=== PATIENT | male | born 1955 | race African-American/Black ===

== ENCOUNTER 2020-01-03 16:55 | Emergency (ER) | payer SELFPAY ==
[~2020-01-03] VITALS: Ht 172.7 cm; Wt 68.0 kg
[~2020-01-03 16:55] MED LIST: BACTRIM DS TAB1 EAC1 ORAL; IBUPROFEN600 MG ORAL; KEFLEX500 MG ORAL
--- NOTE | 2020-01-03 17:10 | NUR ---
ED Nurse Note: ambulated to ed from home c/o right shoulder pain x 1 day. reports waking up with painful shoulder; denies fall or trauma. AO4. nad. vss. ambulates with steady gait.
[2020-01-03] MEDS ORDERED: Methocarbamol 750mg tab ORAL ONE (17:15)
[2020-01-03] MEDS ORDERED: Ketorolac 30mg Inj IM ONE (17:15)
--- NOTE | 2020-01-03 17:20 | NUR ---
ED Nurse Note: Medicated patient; tolerated well. radiology at bedside for imaging.
[2020-01-03 17:33] VITALS: BP 155/90
--- NOTE | 2020-01-03 17:58 | Emergency Room Report ---
History of Present Illness General Chief Complaint: Pain Source: Patient (Brett Emery) Present Illness HPI 64-year-old male who claims has no past medical history here complaining of waking up this morning with right-sided shoulder pain rating it 8 out of 10 at this time. Denies any fall or injury. Reports that he often lifts weights and lifts heavy objects. Denies any chest pain or chest pain radiation. Patient is worried whether the shoulder is out of socket. Has range of motion however with pain. Denies any tingling numbness. Complains of pain radiation to the posterior shoulder. Denies headache and dizziness, reports that has not taken medication for symptom relief. No bony tenderness noted. No impingement sign noted. No unilateral generalized weakness noted. (Brett Emery) Allergies: Coded Allergies: No Known Allergies (Unverified , 03/25/14) COVID-19 Screening Contact w/high risk pt: No Recent Travel to affected area: No Experienced COVID-19 symptoms?: No COVID-19 Testing performed FERN GATHERER: No (Brett Emery) Patient History Past Medical History: see triage record Past Surgical History: none Pertinent Family History: none Immunizations: UTD Reviewed Nursing Documentation: PMH: Agreed; PSxH: Agreed (Brett Emery) Nursing Documentation-PMH Past Medical History: No History, Except For (Brett Emery) Review of Systems All Other Systems: negative except mentioned in HPI (Brett Emery) Physical Exam Vital Signs Date Time Temp Pulse Resp B/P (MAP) Pulse Ox O2 Delivery O2 Flow Rate FiO2 01/03/20 17:02 98.2 66 16 155/90 (111) 96 Room Air Sp02 EP Interpretation: reviewed, normal General Appearance: no apparent distress, alert, GCS 15, non-toxic Head: normocephalic, atraumatic Eyes: bilateral eye normal inspection, bilateral eye PERRL ENT: hearing grossly normal, normal pharynx, no angioedema, normal voice Neck: full range of motion, supple/symm/no masses Respiratory: chest non-tender, lungs clear, normal breath sounds, no rhonchi, no respiratory distress, no retraction, no wheezing, speaking full sentences Cardiovascular #1: regular rate, rhythm, no edema, no murmur Gastrointestinal: normal bowel sounds, non tender, soft, non-distended, no guarding, no rebound Rectal: deferred Genitourinary: no CVA tenderness Musculoskeletal: normal inspection, back normal, normal range of motion, digits /nails normal, no calf tenderness, no lower extremity edema, non-tender Neurologic: alert, motor strength/tone normal, oriented x3, sensory intact, responsive, speech normal Psychiatric: judgement/insight normal, memory normal, mood/affect normal, no suicidal/homicidal ideation Skin: no rash Lymphatic: no adenopathy (Brett Emery) Procedures Splinting Splinting : Consent: Verbal Location: Right shoulder Splint: Right shoulder sling Pre-Proc Neuro Vasc Exam: normal Post-Proc Neuro Vasc Exam: normal Patient Tolerated: Well Complications: None (Brett Emery) Medical Decision Making PA Attestation All diagnoses and treatment plans were reviewed and discussed with my supervising physician Dr. Rudd (Brett Emery) Diagnostic Impression: Primary Impression: Shoulder arthritis Additional Impression: Bursitis, shoulder ER Course 64-year-old male who claims has no past medical history here complaining of waking up this morning with right-sided shoulder pain rating it 8 out of 10 at this time. Denies any fall or injury. Reports that he often lifts weights and lifts heavy objects. Denies any chest pain or chest pain radiation. Patient is worried whether the shoulder is out of socket. Has range of motion however with pain. Denies any tingling numbness. Complains of pain radiation to the posterior shoulder. Denies headache and dizziness, reports that has not taken medication for symptom relief. No bony tenderness noted. No impingement sign noted. No unilateral generalized weakness noted. Ddx considered but are not limited to : Rotator cuff tear, rotator cuff injury, shoulder sprain versus strain versus fracture versus arthritis, bursitis, tendinitis Vital signs: are WNL, pt. is afebrile H&PE are most consistent with: Shoulder arthritis and bursitis ORDERS: Right shoulder x-ray, chest x-ray, EKG to rule out cardiac related shoulder pain, Robaxin, Motrin, Voltaren gel ED INTERVENTIONS: Toradol IM, Robaxin, arm sling applied DISCHARGE: At this time pt. is stable for d/c to home. Will provide printed patient care instructions, and any necessary prescriptions. Care plan and follow up instructions have been discussed with the patient prior to discharge. Patient to follow primary doctor for physical therapy referral as well as orthopedic referral, take medication as directed, avoid strenuous physical activity with the affected side, if worsening symptoms return to the emergency room. (Brett Emery) EKG Diagnostic Results Rate: normal Rhythm: NSR ST Segments: no acute changes Other Impression No acute ST changes (Brett Emery) Rhythm Strip Diag. Results Rhythm: NSR, no PVC's, no ectopy, other (Yeison Rudd MD) Chest X-Ray Diagnostic Results Chest X-Ray Diagnostic Results : Chest X-Ray Ordered: Yes # of Views/Limited/Complete: 1 View Indication: Other EP Interpretation: Yes PA Xray: Interpretation reviewed, by supervising MD, and agrees with findings. Interpretation: no consolidation, no effusion, no pneumothorax Impression: No acute disease Electronically Signed by: Brett Robledo PA-C (Brett Emery) Chest X-Ray Diagnostic Results : Electronically Signed by: P A documentation of Xray reviewed by me and is accurate, Yeison Rudd MD (Yeison Rudd MD) Other X-Ray Diagnostic Results Other X-Ray Diagnostic Results : X-Ray ordered: Right shoulder # of Views/Limited Vs Complete: 3 View Indication: Pain EP Interpretation: Yes PA Xray: Interpretation reviewed, by supervising MD, and agrees with findings. Interpretation: no dislocation, no soft tissue swelling, no fractures Impression: No acute disease Electronically Signed by: Brett Robledo PA-C (Brett Emery) Other X-Ray Diagnostic Results : Electronically Signed by: P A documentation of Xray reviewed by me and is accurate, Yeison Rudd MD (Yeison Rudd MD) Last Vital Signs Date Time Temp Pulse Resp B/P (MAP) Pulse Ox O2 Delivery O2 Flow Rate FiO2 01/03/20 17:51 98.2 01/03/20 17:33 66 16 155/90 96 Room Air (Brett Emery) Disposition: HOME, SELF-CARE Condition: Stable Scripts Ibuprofen* (MOTRIN*) 600 Mg Tablet 600 MG ORAL Q8H PRN for FOR PAIN, #30 TAB 0 Refills Prov: Brett Emery 01/03/20 Methocarbamol* (ROBAXIN-500*) 500 Mg Tablet 500 MG ORAL TID PRN for For Pain, #15 TAB 0 Refills Prov: Brett Emery 01/03/20 Diclofenac Sodium (VOLTAREN) 100 Gm Gel..gram. 2 GM TP TID, #100 GM Prov: Brett Emery 01/03/20 Referrals: NOT CHOSEN IPA/,REFERRING (PCP) Patient Instructions: Arthritis, [id number], Bursitis, [id number] Additional Instructions: Take medication as directed, follow-up with your primary doctor, for physical therapy referral and orthopedic referral, if worsening symptoms return to the emergency room. Avoid strenuous of activity with the affected side Brett Emery Jan 03, 2020 17:58 Yeison Rudd MD Jan 04, 2020 02:24
[2020-01-03] MEDS ORDERED: IBUPROFEN600 M1 ORAL (17:59)
[2020-01-03] MEDS ORDERED: VOLTAREN100 G1 TP (17:59)
[2020-01-03] MEDS ORDERED: ROBAXIN-500MG ORAL (17:59)
[2020-01-03 18:00] VITALS: BP 155/90
--- NOTE | 2020-01-03 18:00 | NUR ---
ER DISCHARGE NOTE: Sling to right arm applied by ertech. Patient is cleared to be discharged per ERMD, pt is aox4, on room air, with stable vital signs. pt was given dc and prescription instructions, pt was able to verbalize understanding, pt id band removed. pt is able to ambulate with steady gait. pt took all belongings.
--- NOTE | 2020-01-03 18:02 | Diagnostic Imaging Report ---
EXAM: XR Chest, 1 View CLINICAL HISTORY: PAIN TECHNIQUE: Frontal view of the chest. COMPARISON: None. FINDINGS: Lungs: Unremarkable. No consolidation. Pleural space: Unremarkable. No pneumothorax. Heart: Unremarkable. No cardiomegaly. Mediastinum: Unremarkable. Bones/joints: Degenerative disease of bilateral shoulders and spine noted. IMPRESSION: No acute cardiopulmonary disease.
--- NOTE | 2020-01-03 18:02 | Diagnostic Imaging Report ---
EXAM: XR Right Shoulder Complete, 2 or More Views CLINICAL HISTORY: PAIN TECHNIQUE: Two or more views of the right shoulder. COMPARISON: None. FINDINGS: Bones/joints: Degenerative disease at the acromioclavicular joint. Mild degenerative disease at the glenohumeral articulation. No acute fracture. No dislocation. Soft tissues: Unremarkable. Other findings: Normal alignment. IMPRESSION: 1. Degenerative disease as described. 2. No acute fracture or subluxation.
== END 2020-01-03 18:00 | disposition home or self-care (01) ==
LOC: EMR 17:39
DX: M19.011 Primary osteoarthritis, right shoulder (principal); M71.9 Bursopathy, unspecified; M19.012 Primary osteoarthritis, left shoulder; M47.9 Spondylosis, unspecified
CPT/HCPCS: 29105; 71045; 73030; 93005; 96372; 99284; J1885